=== PATIENT | female | born 1950 | race Caucasian/White ===

== ENCOUNTER 2018-12-16 12:30 | Emergency (ER) | payer MEDICAID, MEDICARE ==
[2018-12-16] MEDS ORDERED: Doxycycline 100 MG Cap PO ONE (14:16)
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
--- NOTE | 2018-12-17 08:01 | CR ---
Chest: Portable view of the chest was obtained. Comparison: No prior chest x-ray is available. Heart size and mediastinum are within normal limits for portable technique. Lungs are clear with no acute parenchymal change. Bony structures are grossly intact. Impression: 1. Nothing acute is appreciated on portable chest x-ray. Diagnostic code #1
== END 2018-12-16 14:35 | disposition home or self-care (01) ==
LOC: JD.ED 12:30
DX: J40 Bronchitis, not specified as acute or chronic (principal); I25.2 Old myocardial infarction; J45.909 Unspecified asthma, uncomplicated; E78.00 Pure hypercholesterolemia, unspecified; E66.9 Obesity, unspecified; I12.9 Hypertensive chronic kidney disease with stage 1 through stage 4 chronic kidney disease, or unspecified chronic kidney disease; N18.3 Chronic kidney disease, stage 3 (moderate); Z88.0 Allergy status to penicillin; Z79.82 Long term (current) use of aspirin; Z79.899 Other long term (current) drug therapy; Z68.34 Body mass index [BMI] 34.0-34.9, adult
CPT/HCPCS: 36415; 71045; 80053; 84484; 85025; 90471; 90662; 93005; 99285; A9270; 93010; 99283

== ENCOUNTER 2019-10-10 04:29 | Emergency (ER) | payer MEDICAID, MEDICARE, OTHER ==
[2019-10-10] MEDS ORDERED: HYDROmorphone 1 MG/ML Syringe IVPUSH ONE (04:39)
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
[2019-10-10] MEDS ORDERED: Acetaminophen/oxyCODONE 325-5 MG Tab PO ONE (05:56)
[2019-10-10] MEDS ORDERED: tiZANidine 4 MG Tab PO ONE (05:57)
[2019-10-10] MEDS ORDERED: Diazepam 5 MG Tab PO ONE (06:01)
[2019-10-10] MEDS ORDERED: Ondansetron 4 MG/2 ML SDV IVPUSH ONE (06:27)
--- NOTE | 2019-10-10 07:04 | CT ---
CT chest Technique: Multiple axial sections were obtained from above the lung apices inferiorly through the lung bases. Intravenous contrast was not utilized. Comparison: Prior chest x-ray of 12/16/18. Aorta shows atherosclerotic calcification which continues into the branch vessels. Aorta shows no aneurysm. Mild coronary artery calcification is seen. No pericardial thickening is seen. Mediastinum and hilar regions show no adenopathy. No axillary adenopathy is seen. Minimal atelectasis is noted within both lung bases. Lungs otherwise are clear. Bone window settings were reviewed. Nondisplaced fracture is noted within the posterior left ninth rib which is most likely acute. No other discrete rib fracture is appreciated. Scattered degenerative change is seen throughout the spine. Impression: 1. Acute appearing nondisplaced fracture involving the posterior left ninth rib. 2. Other findings as noted above. No other acute abnormality is appreciated. Diagnostic code #3 This report was dictated in MDT I agree with preliminary report from [facility], finalized on 10/10/19, 6:58 AM Central Daylight Time
== END 2019-10-10 07:06 | disposition home or self-care (01) ==
LOC: JD.ED 04:29
DX: S22.32XA Fracture of one rib, left side, initial encounter for closed fracture (principal); I25.10 Atherosclerotic heart disease of native coronary artery without angina pectoris; I25.2 Old myocardial infarction; J45.909 Unspecified asthma, uncomplicated; I12.9 Hypertensive chronic kidney disease with stage 1 through stage 4 chronic kidney disease, or unspecified chronic kidney disease; N18.3 Chronic kidney disease, stage 3 (moderate); M10.9 Gout, unspecified; E66.9 Obesity, unspecified; Z68.41 Body mass index [BMI] 40.0-44.9, adult; Z88.0 Allergy status to penicillin; Z79.82 Long term (current) use of aspirin; Z79.899 Other long term (current) drug therapy; X58.XXXA Exposure to other specified factors, initial encounter
CPT/HCPCS: 71250; 96374; 96375; 99284; A9270; J1170; J2405; J3360